=== PATIENT | male | born 1960 | race Caucasian/White ===

== ENCOUNTER 2017-03-24 05:02 | Day surgery (SDC) | payer OTHER ==
[~2017-03-24 05:02] MED LIST: CELEBREX1 PO; METHOC750B PO; MOBIC15 MG PO; MULTIPLE VIT PO; NEUR300 PO; NORCO1 TA1 PO; RELA5 PO; ULTRAM50 PO; ZANAFLEX 4 MG TA4 MG PO
== END 2017-03-24 10:31 | disposition home or self-care (01) ==
LOC: SDC 05:02
PROVIDERS: Orthopaedic Surgery
PROC: B01BZZZ Fluoroscopy of Spinal Cord (ICD-10-PCS; 2017-03-24)
PROC: 3E0R3BZ Introduction of Anesthetic Agent into Spinal Canal, Percutaneous Approach (ICD-10-PCS; principal; 2017-03-24 08:15)
DX: M54.16 Radiculopathy, lumbar region (principal); Z98.890 Other specified postprocedural states
CPT/HCPCS: J1040; J2250; J3010; Q9967